=== PATIENT | male | born 1970 | race Caucasian/White ===

== ENCOUNTER 2016-12-19 11:33 | Emergency (ER) | payer BC, OTHER ==
[2016-12-19] MEDS ORDERED: HYDROmorphONE/DILAUDID 1 MG/ML SYR ONE (11:36)
[2016-12-19 11:49] VITALS: TEMP 98.2
[2016-12-19] MEDS ORDERED: HYDROmorphONE/DILAUDID 1 MG/ML SYR IVP ONE (11:50)
--- NOTE | 2016-12-19 11:58 | EDPHY ---
H & P Time Seen by Provider: 12/19/16 11:36 HPI/ROS: Chief complaint. Limited trauma activation HPI. 46-year-old male playing soccer slipped and fell and landed on outstretched right arm. He is here by EMS as a limited trauma activation. He sustained immediate pain and deformity to the right elbow. Patient complains of tingling and numbness to all fingers of the right hand. Unable to move the right elbow. No head injury or neck pain. No loss of conscious. No pain to right shoulder right wrist. No injury left arm, chest, abdomen, back, legs. Patient is right handed. No similar symptoms previously ROS Constitutional. no fever/chills, no weakness Eyes. no problems with vision ENT. no sore throat, no nasal drainage Cardiovascular. no chest pain Respiratory. no shortness of breath, no cough Abdominal. no abdominal pain, no nausea/vomiting, no diarrhea . no problems urinating MS. Right elbow pain Skin. no rash Lymph. no swollen glands Neuro. no headache, no dizziness, no difficulty walking or with speech Past Medical/Surgical History: Healthy Social History: , nonsmoker, no alcohol Smoking Status: Never smoked Physical Exam: General Appearance: Alert well-developed male moderate distress vital signs are stable Eyes: Pupils equal and round no pallor or injection. ENT, Mouth: Mucous membranes are moist. Respiratory: There are no retractions, lungs are clear to auscultation. Cardiovascular: Regular rate and rhythm. Gastrointestinal: Abdomen is soft and nontender, no masses, bowel sounds normal. Neurological: Awake and alert, sensory and motor exams grossly normal. Skin: Warm and dry, no rashes. Musculoskeletal: Neck is supple nontender. Extremities no tenderness to right shoulder right wrist. Obvious deformity to the right elbow. Distal radial pulse is normal Psychiatric: Patient is oriented X 3, there is no agitation. Constitutional: Initial Vital Signs Temperature (C) 36.8 C 12/19/16 11:47 Heart Rate 64 12/19/16 11:47 Respiratory Rate 20 12/19/16 11:47 Blood Pressure 128/70 H 12/19/16 11:47 O2 Sat (%) 99 12/19/16 11:47 O2 Delivery Mode [Post Non-Rebreather Mask Procedure 1st] O2 Delivery Mode [Procedural Non-Rebreather Mask 1st] O2 Delivery Mode [.Immediate Non-Rebreather Mask Pre-Procedure] O2 Delivery Mode Room Air O2 (L/minute) [Post Procedure 15 1st] O2 (L/minute) 2 Allergies/Adverse Reactions: No Known Drug Allergies Allergy (Verified 12/19/16 11:49) Home Medications: Medication Instructions Recorded oxyCODONE/APAP 5/325 [Percocet 1 tab PO Q4-6PRN PRN #14 tab 12/19/16 5/325] Medical Decision Making - Diagnostics Imaging Results: Imaging Impressions Elbow X-Ray 12/19/16 11:51 Impression: Right elbow dislocation without definite associated fracture. Elbow X-Ray 12/19/16 12:52 Impression: Anatomic alignment following reduction. Forearm X-Ray 12/19/16 13:11 Impression: Negative for fracture. Splinting material results in artifact and diminishes radiographic evaluation. X-ray right elbow shows right elbow dislocation and rotation without obvious fracture Post reduction x-ray shows good anatomical position and no fracture Procedures: IV normal saline. Dilaudid and fentanyl for pain. Procedure: Conscious sedation. Indication: Elbow dislocation I was asked by Dr. hartman to perform procedural sedation. The patient is an appropriate candidate to tolerate procedural sedation. The patient's vital signs and mental status are appropriate. The risks, benefits and alternatives of the sedation were discussed with the patient. The patient is ASA classification 1. The patient's Mallampati airway score was 1 and the patient did meet the 3-3-2 airway measurements. A time out was completed. The patient was sedated with propofol 80 mg IV with. The patient was monitored with continuous pulse oximetry, genetic physician and end tidal CO2. There were no complications and no significant hypoxemia. I performed the sedation The total time I spent at the bedside during the procedural sedation was 18 minutes. The patient was examined after the procedural sedation and has returned to their pre-sedation baseline with normal vital signs and a normal examination. ED Course/Re-evaluation: Following reduction patient is placed in a posterior right upper extremity splint and a sling. Post splint application checked by me shows good anatomic position and distal motor vascular sensitivity is to be intact Patient no longer has any paresthesias to his hand Differential Diagnosis: Right elbow dislocation without fracture. Initial paresthesias that have resolved following reduction. Radial pulses remain full and equal. - Data Points Medications Given: Discontinued Medications Hydromorphone HCl (Dilaudid) 1 mg IVP EDNOW ONE Stop: 12/19/16 11:51 Last Admin: 12/19/16 11:50 Dose: 1 mg Propofol (Diprivan) 80 mg IVP EDNOW ONE Stop: 12/19/16 12:44 Last Admin: 12/19/16 12:57 Dose: 80 mg Departure - Departure Disposition: Home, Routine, Self-Care Clinical Impression: Dislocation of right elbow Qualifiers: Encounter type: initial encounter Qualified Code(s): S53.104A - Unspecified dislocation of right ulnohumeral joint, initial encounter Condition: Good Instructions: Elbow Dislocation (ED) Additional Instructions: Splint and sling until you see Dr. hartman in 1 week to 1 and half weeks. Ice to elbow next 24-48 hours. Ibuprofen 600 mg every 6 hours for discomfort. Percocet in addition for pain. Return for worsening symptoms. Referrals: Patient,NotPresent [Primary Care Provider] - As per Instructions Yoel Hartman MD [Medical Doctor] - 5-7 days, call for appt. Prescriptions: oxyCODONE/APAP 5/325 [Percocet 5/325] 1 tab PO Q4-6PRN PRN #14 tab PRN Reason: Pain, Moderate
[2016-12-19] MEDS ORDERED: fentaNYL 100 MCG/2 ML INJ IVP ONE (12:00)
[2016-12-19] MEDS ORDERED: fentaNYL 100 MCG/2 ML INJ ONE (12:02)
[2016-12-19] MEDS ORDERED: PROPOFOL 200 MG/20 ML VIAL ONE (12:31)
[2016-12-19] MEDS ORDERED: PROPOFOL 200 MG/20 ML VIAL IVP ONE (12:43)
[2016-12-19 12:54] VITALS: RESP 16
[2016-12-19 14:34] VITALS: BP 114/90; PULSE 68; O2SAT 92
--- NOTE | 2016-12-19 22:12 | GCON ---
[f rep st] CONSULTATION Patient Name: ZEKE JUNIOR N-Number: [id number] Date of : 1970 Patient Status: Discharged Attending Doctor: Brenton Maroin MD Consulting Doctor: Yoel Hartman MD Date of service: 12/19/16 CPT codes: CPT code 50919 ER visit (not requiring admission), level three CPT code 32175 Treatment of a closed elbow dislocation, requiring anesthesia Modifier 57 Decision for surgery CHIEF COMPLAINT: Right elbow dislocation HISTORY OF PRESENT ILLNESS: This is a very pleasant 46 year old male with a significant history for right elbow dislocation after falling onto his outstretched right arm earlier today. He denies head injury or any other injury. PROBLEM LIST: Right elbow dislocation PAST MEDICAL HISTORY: None SURGERIES: None SOCIAL HISTORY: Non-contributory FAMILY HISTORY: Non-contributory CURRENT MEDICATIONS: None ALLERGIES: NKDA REVIEW OF SYSTEMS Constitutional: No unexpected weight loss, weight gain, fevers, chills, or fatigue. Eyes: No blurred or double vision, no eye pain, redness or swelling. ENT: No headaches, difficulty swallowing, nose bleeds, tinnitus, or earaches. Cardiovascular: No chest pain, palpitations, fainting or murmurs. Respiratory: No shortness of breath, wheezing, cough, of difficulty breathing. GI: No reflux, no nausea or vomiting, no constipation, diarrhea, or bloody stools. Genitourinary: No urinary frequency or urgency, no pain with urination. Skin: No skin changes, rashes, itching, or redness. Neurologic: No unsteadiness of gait, no dizziness, tremors, or seizures. Psychiatric: No nervousness, anxiety, depression, or hallucinations. Hematologic: No increased bleeding or easy bruising. Endocrine: No excessive thirst or urination and no heat or cold intolerances. Allergic: No reactions to food or environment. Musculoskeletal: See history of present illness. PHYSICAL EXAM General: No apparent distress. Orientation: Alert and oriented times three Mood and affect: Calm, appropriate. Gait and station: Normal gait and station. Skin: Warm, dry. Lymph: Non tender neck, axillary and inguinal nodes. Chest: Equal expansion, no pain with deep breaths, speaks in coherent sentences. Cardiovascular: Regular pulse. Abdomen: Soft, non-tender, no masses, no palpable hernias. Bilateral elbow examination Inspection/palpation: Right: Valgus deformity with moderate swelling Left: Normal resting posture. Elbow ROM Elbow Extension-Flexion: JASON / 0-150 / 0-150 Forearm Supination: JASON / 0-80 / 0-80 Pronation: JASON / 0-80 / 0-80 Elbow strength Elbow Flexors: JASON / 5 / 5 Triceps : JASON / 5 / 5 Sensory MABC : + / + / + LABC: + / + / + Median: + / + / + Radial: + / + / + Ulnar: + / + / + Vascular exam (R / L / Normal) Radial pulse: 2+ / 2+ / 2+ Ulnar pulse: 2+ / 2+ / 2+ Medical decision making Data Imaging study: right elbow radiographs, three views Action: interpreted Interpretation / pertinent findings: right elbow dislocation without associated fracture Diagnoses New diagnosis: right elbow dislocation Work-up planned: yes: see assessment and plan Assessment and plan This is a 46 year old male s/p a right elbow dislocation which he sustained earlier today (12/19/16) -As such I have discussed with the patient the risks, benefits, alternatives, and complications associated with both non-operative (specifically, observation ) and operative (specifically, right elbow closed reduction and splinting) forms of treatment -The patient fully understands the risks, benefits, alternatives, and complications of both forms of treatment and the patient wishes to proceed with closed reduction and splinting -FU as an outpatient in 1.5 weeks for splint removal, repeat right elbow radiographs upon arrival to clinic and probable initiation of early ROM -Strict NWB on RUE Procedure Note Date: 12/19/16 Attending surgeon: Yoel Hartman M.D. volunteer assistant: Cyndie Calle PA-C Procedure: Closed reduction of right elbow dislocation with long-arm splint application The patient received sedation by Dr. Brenton Marion. A closed reduction of the right elbow was then performed. Reduction was confirmed with PA and lateral C- arm images. A sugar tong splint was then applied with the elbow at 90 degrees of flexion and the forearm in supination. Formal post-reduction radiographs demonstrated anatomic reduction in all views. The patient tolerated the procedure without difficulty. Time I have spent 80 minutes of [id number] time with the patient during this visit. Over fifty percent of this time was spent counseling the patient on the risks, benefits, alternatives, and complications of both non-operative and operative forms of treatment as outlined above. /[id number]/MODL MTDD
== END 2016-12-19 14:33 | disposition home or self-care (01) ==
LOC: EDUNIT#
PROC: 0RSLXZZ Reposition Right Elbow Joint, External Approach (ICD-10-PCS; principal; 2016-12-19)
DX: S53.104A Unspecified dislocation of right ulnohumeral joint, initial encounter (principal); W01.0XXA Fall on same level from slipping, tripping and stumbling without subsequent striking against object, initial encounter; Y99.8 Other external cause status; Y93.66 Activity, soccer
CPT/HCPCS: 96374; J1170; J2704; J3010